=== PATIENT | male | born 1990 | race Caucasian/White ===

== ENCOUNTER 2023-10-16 19:30 | Emergency (ER) | payer SELFPAY ==
[~2023-10-16] VITALS: Ht 185.4 cm; Wt 88.5 kg
[2023-10-16] MEDS ORDERED: predniSONE 20 MG TABLET ONE (19:56)
[2023-10-16] MEDS ORDERED: FAMOTIDINE (20 MG) 20 MG TABLET ONE (19:57)
[2023-10-16] MEDS ORDERED: diphenhydrAMINE HCL 50 MG CAPSULE ONE (19:57)
[2023-10-16] MEDS: FAMOTIDINE (20 MG) 20 MG TABLET PO ONE (20:02)
[2023-10-16] MEDS: predniSONE 10 MG TABLET PO ONE (20:02)
[2023-10-16] MEDS: diphenhydrAMINE HCL 50 MG CAPSULE PO ONE (20:02)
[2023-10-16 21:36] VITALS: BP 127/85; TEMP 97.8; O2SAT 98
== END 2023-10-16 21:37 | disposition home or self-care (01) ==
LOC: ER 19:41
DX: T63.441A Toxic effect of venom of bees, accidental (unintentional), initial encounter (principal); Y92.89 Other specified places as the place of occurrence of the external cause
CPT/HCPCS: 99284; Q0163; J7512 ×2